=== PATIENT | male | born 1930 ===

== ENCOUNTER 2017-12-29 06:00 | Inpatient (IN) | payer OTHER ==
[~2017-12-29] VITALS: Ht 167.6 cm; Wt 72.6 kg
[~2017-12-29 06:00] MED LIST: Cordarone 200 MG TAB PO; LIPITOR20 MG PO; LIPITOR40 MG; POM (MEDICAMENTO EN PISO) PO; PRELONE PO; TOPROL XL25 M1 PO
[2017-12-30] MEDS ORDERED: LIPITOR40 MG PO (12:26)
[2017-12-30] MEDS ORDERED: TOPROL XL50 M1 PO (12:27)
[2017-12-30] MEDS ORDERED: FUROSEMIDE20 MG PO (12:28)
[2017-12-30] MEDS ORDERED: ELIQUIS2.5 MG PO (12:28)
[2017-12-30] MEDS ORDERED: DIGOXIN125 MCG PO (12:30)
== END 2017-12-30 13:00 | disposition home or self-care (01) | DRG 309 ==
LOC: ER 06:00 → SURH 10:37 → MEDJ 10:37 → MEDI 20:08 → SURH 20:08
PROC: B246ZZZ Ultrasonography of Right and Left Heart (ICD-10-PCS; principal; 2017-12-29)
PROC: 4A12X4Z Monitoring of Cardiac Electrical Activity, External Approach (ICD-10-PCS; 2017-12-29)
DX: I48.3 Typical atrial flutter (principal); I50.30 Unspecified diastolic (congestive) heart failure; I11.0 Hypertensive heart disease with heart failure; I48.0 Paroxysmal atrial fibrillation; Z79.01 Long term (current) use of anticoagulants; I25.10 Atherosclerotic heart disease of native coronary artery without angina pectoris; I27.29 Other secondary pulmonary hypertension; I42.0 Dilated cardiomyopathy; I35.2 Nonrheumatic aortic (valve) stenosis with insufficiency

== ENCOUNTER 2018-01-20 00:01 | Inpatient (IN) | payer OTHER ==
[~2018-01-20] VITALS: Ht 152.4 cm; Wt 72.6 kg
[~2018-01-20 00:01] MED LIST changes: +DIGOXIN125 MCG PO; +ELIQUIS2.5 MG PO; +FUROSEMIDE20 MG PO; +LIPITOR40 MG PO; +TOPROL XL50 M1 PO
[2018-01-20] MEDS ORDERED: CELEBREX200MG (09:15)
[2018-01-22] MEDS ORDERED: ELIQUIS2.5 MG PO (12:30)
[2018-01-22] MEDS ORDERED: LIPITOR40 MG PO (12:30)
[2018-01-22] MEDS ORDERED: ARICEPT10 MG PO (12:30)
[2018-01-22] MEDS ORDERED: DIGOXIN125 MCG PO (12:30)
[2018-01-22] MEDS ORDERED: FUROSEMIDE20 MG PO (12:31)
[2018-01-22] MEDS ORDERED: TOPROL XL50 M1 PO (12:31)
== END 2018-01-22 13:09 | disposition home or self-care (01) | DRG 311 ==
LOC: ER 00:01 → MEDJ 15:52
DX: I24.9 Acute ischemic heart disease, unspecified (principal); I50.30 Unspecified diastolic (congestive) heart failure; I42.0 Dilated cardiomyopathy; I48.3 Typical atrial flutter; I11.0 Hypertensive heart disease with heart failure; I27.29 Other secondary pulmonary hypertension; I25.10 Atherosclerotic heart disease of native coronary artery without angina pectoris; Z79.01 Long term (current) use of anticoagulants